=== PATIENT | female | born 1935 | race Caucasian/White ===

== ENCOUNTER → 2017-01-21 16:39 | Outpatient (CLI) | payer MEDICARE, BC ==
[~2017-01-21 16:39] MED LIST: BAYER CHEWABLE81 MG PO; COLACE50 MG/5 ML PO; GLUCOSAMINE & C1 CAP; PREMARIN45 GM VG; SYNTHROID25 MCG PO
[2017-02-03 07:10] VITALS: BMI 20.8
== END | disposition home or self-care (01) ==
LOC: D.MAMMO 10:00
DX: Z12.31 Encounter for screening mammogram for malignant neoplasm of breast (principal)

== ENCOUNTER 2017-02-03 05:34 | Day surgery (SDC) | payer MEDICARE, BC ==
[2017-02-02 12:29] LABS: HEMATOCRIT 34.5 % (36.0-48.0); HEMOGLOBIN 11.4 g/dL (12-16)
[~2017-02-03] VITALS: Ht 154.9 cm; Wt 49.9 kg
[2017-02-03 07:10] VITALS: BP 132/68; Ht 154.9 cm; Wt 49.9 kg
--- NOTE | 2017-02-03 12:07 | NUR ---
1205--IV DC'D, PT UP TO DRESS AT THIS TIME. SAGE FIELDS
--- NOTE | 2017-02-03 12:23 | NUR ---
1225--DISCHARGE INSTRUCTIONS GIVEN, PT VERBALIZES UNDERSTANDING, PT OFF UNIT VIA WC. SAGE FIELDS
--- NOTE | 2017-02-10 08:50 | OP ---
PATIENT NAME: ROBERTO TAMAYO MEDICAL RECORD: [id number] :37 LOCATION:D.OPS ADMISSION DATE: SURGEON: PAUL VILLATORO DPM DATE OF OPERATION: 02/03/2017 PREOPERATIVE DIAGNOSES: 1. Hallux abductovalgus, left foot. 2. Instability, left first met cuneiform joint. 3. Plantar plate rupture, left second metatarsophalangeal joint. 4. Hammertoe deformity, left second digit. POSTOPERATIVE DIAGNOSES: 1. Hallux abductovalgus, left foot. 2. Instability, left first met cuneiform joint. 3. Plantar plate rupture, left second metatarsophalangeal joint. 4. Hammertoe deformity, left second digit. PROCEDURES: 1. Peres bunionectomy, left foot. 2. Fusion left first met cuneiform joint. 3. Rober osteotomy, left second metatarsal. 4. Plantar plate repair, left second MPJ. 5. PIPJ fusion, left 2nd digit. ANESTHESIA: Preoperative popliteal block per the anesthesia department as well as general anesthesia in the operating room as well as 10 cc of infiltration of lidocaine and Marcaine plain around the saphenous nerve at the ankle joint. HEMOSTASIS: Left thigh tourniquet at 350 mmHg. PREOPERATIVE DETAILS: The patient was taken to the OR, placed on the operating table in a supine position. This followed by induction of general anesthesia and infiltration of local anesthetic. The left extremity was then prepped and draped in the usual aseptic technique followed by exsanguination and inflation of tourniquet. PROCEDURE NUMBER ONE: Peres bunionectomy, left foot. A 15-blade was used to create an incision from the dorsal aspect of the medial cuneiform distally to the base of the proximal phalanx of the hallux. The incision was deepened down through subcutaneous tissue to the first MPJ where an inverted L capsulotomy was performed. The medial capsular flap was reflected and the head of the first metatarsal was delivered. A sagittal saw was used to resect the medial eminence. Attention was directed to the first interspace where a lateral release was performed. Good clinical reduction of the lateral contracture was verified and that concludes the Peres bunionectomy. PROCEDURE NUMBER TWO: First met cuneiform joint fusion, left foot. The incision as described in #1 was carried down to the periosteum and periosteal incision was made, being sure to avoid all vital structures. The first met cuneiform joint was delivered. A sagittal saw was used to resect the joint. Temporary fixation was used and a 5-hole plate with the 1 hole crossing the fusion site as a compression screw was placed. The C-arm was used to verify good placement as well as alignment of the first metatarsal. Wound was flushed. The periosteum and joint capsule repaired with 2-0 Vicryl, the subcutaneous tissue with 4-0 Rapide and the skin was closed with 4-0 Rapide in a subcuticular OPERATIVE REPORT [id number] ROBERTO TAMAYO technique followed by Libby. PROCEDURE NUMBER 3: Rober osteotomy, left second metatarsal. A 15-blade was used to create a curvilinear incision from the dorsal aspect of the mid shaft of the second metatarsal to the PIPJ of the second digit. The incision was deepened down through subcutaneous tissue, the extensor longus tendon was visualized and transected in a Z-fashion and retracted in the wound. At this time, a linear capsulotomy was performed over the top of the second MPJ and the head of the second metatarsal was delivered. A McGlamry scoop elevator was used to free the plantar structures. A sagittal saw was then used to create a Rober osteotomy in dorsal distal to plantar proximal through the metatarsal head and proximal and the capital fragment was pushed proximal out of the way. PROCEDURE NUMBER 4: Plantar plate repair. At this time, utilizing a K-wire retraction and distracting the joint. There was noted to be significant deficits centrally in the plantar plate. The plantar plate was freed sharply from the base of the plantar aspect of the proximal phalanx and a scorpion passer was used to pass FiberWire through the plantar plate. Two small drill holes were made in the proximal aspect of the proximal phalanx and the FiberWire was passed up through the small drill holes. At this time, the Rober osteotomy was fixated with 2 popoff screws with the second metatarsal in proper alignment and length and with the toe held in a slightly plantarflexed position at the MPJ, the FiberWire was tied with surgeon's knots up through the drill holes securing and repairing the plantar plate. Excellent alignment of the second MPJ was noted following the repair. PROCEDURE NUMBER 5: PIPJ fusion, left 2nd digit. The extensor longus tendon was freed from the dorsal aspect of the PIPJ. A sagittal saw was used to resect the head of the proximal phalanx and base of the middle phalanx. A small drill hole was made and the bone graft was placed in the deficit with the capital fragment on top of the bone graft compressing it, compressing the fusion site with excellent fixation noted. The wound was flushed. The capsule was repaired with 2-0 Vicryl, the extensor longus tendon was repaired with 4-0 Rapide and subcutaneous tissue was repaired with 4-0 Rapide and the skin was closed with 4-0 Rapide in a subcuticular technique followed by Dermabond, Adaptic, 4 x 4 and Conform were used to dress the wound followed by application of a modified Cabrera compression dressing. Tourniquet was deflated. POSTOPERATIVE DETAILS: The patient tolerated the procedure well and left the OR with vital signs stable and vascular status at preop levels. The patient was transported to recovery per anesthesia in stable condition. TRANSINT:[id number] Voice Confirmation ID: [id number] DOCUMENT ID: [id number] PAUL VILLATORO DPM at 0850 CC: [id number] DICTATION DATE: 02/03/17 1004 SUPERVISOR SIGN SHOP: 02/03/17 1231 [facility] 02/03/17 [address] [place] [address]
== END 2017-02-03 12:25 | disposition home or self-care (01) ==
LOC: D.OPS 05:34 → D.PAN 08:30 → D.OPS 08:30 → D.PAN 09:00 → D.OPS 12:25
PROVIDERS: Anesthesiology
DX: M20.12 Hallux valgus (acquired), left foot (principal); M25.375 Other instability, left foot; S93.525A Sprain of metatarsophalangeal joint of left lesser toe(s), initial encounter; M20.42 Other hammer toe(s) (acquired), left foot

== ENCOUNTER 2019-10-03 10:53 | Outpatient (CLI) | payer MEDICARE ==
[~2019-10-03] VITALS: Ht 154.9 cm; Wt 50.0 kg
--- NOTE | ~2019-10-03 | HEMODYNAMI ---
PATIENT:ROBERTO TAMAYO MEDICAL RECORD: [id number] : 37 LOCATION:[facility] ADMISSION DATE: 10/03/19 Generatedon:10/03/201913:37 Patient name: ROBERTO TAMAYO Patient #: [id number] SSN: [id number] : 1935 Date of study: 10/03/2019 Page: Of Hemodynamic Procedure Report Patient Data Patient Demographics Procedure consent was obtained First Name: ROBERTO Gender: Female Last Name: RONI : 1935 [facility] Initial: PALOMA Age: 84 year(s) Patient #: [id number] Race: SSN: [id number] Additional ID: [id number] Contact details [address]: [address] [place] [address] State: [place] City: [place] Zip code: [address] Admission Admission Data Admission Date: 10/03/2019 Admission Time: 10:53 Arrival Date: 10/03/2019 Arrival Time: 0:00 Admit Source: Other Insurance Payor: Private health insurance, Medicare [facility] #: [id number] Height (in.): 61 BSA: 1.48 (m2) Height (cm.): 154.94 BMI: 21.16 (kg/m2) Weight (lbs.): 112 Weight (kg.): 50.8 Procedure Procedure Types Cath Procedure Diagnostic Procedure JANKI Procedure Description Procedure Date Procedure Date: 10/03/2019 Procedure Start Time: 13:23 Procedure End Time: 13:34 Procedure Staff Name Function Scar Tapia RT Monitor Ange Campbell RN Nurse Nic Stanley MD Performing Physician Franny Nava Boat Dispatcher Cheng Caicedo CRNA Additional personnel Procedure Data Cath Procedure Estimated blood loss: 0 ml Procedure Complications No complications Procedure Medications Medication Administration Route Dosage Oxygen etCO2 Nasal cannula 2 l/min Refer to Anesthesia Notes for Sedation Medications Hurricaine Newport P[address]O. [address] Sprays Hemodynamics Rest BSA: 1.48 (m2) O2 Consumption: Estimated: 201.28 (ml/min) O2 Consumption indexed : Estimated:136 (ml/min/m) Pre Cath Intra NCS Post Cath Vital Signs Time Heart Resp SPO2 etCO2 NIBP (mmHg) Rhythm Pain Sedation Rate (ipm) (%) (mmHg) Status Level (bpm) 13:12:16 81 234 98 0 116/67(83) NSR (Missing) 10(A) 13:16:19 82 19 98 0 134/67(99) NSR (Missing) 10(A) 13:20:32 84 21 98 25.6 138/65(95) NSR (Missing) 10(A) 13:22:55 87 23 100 0 153/94(114) NSR (Missing) 9(A) 13:27:09 84 17 100 24.9 142/76(112) NSR (Missing) 9(A) 13:32:08 90 15 99 27.9 Measuring NSR (Missing) 10(A) 13:33:13 84 20 100 17.3 Out of NSR (Missing) 10(A) range Medications Time Medication Route Dose Verified Delivered Reason Notes Effecti veness by by 13:14:13 Oxygen etCO2 2 Nic Cassidy used for Nasal l/min [facility] Nick Campbell patient svcs mgr cannula MD 13:14:19 Refer to Nic Cassidy Anesthesia [facility] Nick Campbell RN Notes for MD Sedation Medications 13:14:34 Hurricaine P[address] Nic Cassidy for local Newport Sprays St Nick Campbell RN anesthetic MD Procedure Log Time Note 13:08:12 Diagnostic Cath Status : Elective 13:08:37 Scar Tapia RT(R) sent for patient. Start room use. 13:08:44 Time tracking: Regular hours (M-F 7:00 - 5:00) 13:08:48 Plan of Care:Hemodynamics will remain stable., Cardiac rhythm will remain stable., Comfort level will be maintained., Respiratory function will remain adequate., Patient/ family verbilizes understanding of procedure., Procedure tolerated without complication., Recovers from procedure without complications.. 13:09:13 Informed consent obtained and on chart 13:09:50 Admit Source: Other 13:09:52 Arrival Date: 10/03/2019 12:00:00 AM 13:09:59 Insurance Payor : Private health insurance, Medicare 13:10:25 Patient Weight : 112 lbs 13:10:31 Patient Height : 61 inches 13:10:42 Patient received from Pre/Post Procedure Room to CCL 3 Alert and oriented. Tansferred to table in Supine position. 13:10:43 Warm blankets applied, and breana hugger turned on for patient comfort. 13:10:44 Correct patient and procedure confirmed by team. 13:11:00 Vital chart was started 13:11:05 Full Disclosure recording started 13:11:09 H&P Date Dictated: 10/03/2019 Within 30 days and on chart., H&P Addendum completed by physician on day of procedure. (MUST COMPLETE FOR ALL OUTPATIENTS). 13:11:11 Pre-procedure instructions explained to patient. 13:11:12 Pre-op teaching completed and patient verbalized understanding. 13:11:13 Family in patients room. 13:11:14 Patient NPO since Midnight. 13:11:16 Is the patient allergic to Iodine/contrast media? No. 13:11:17 Was the patient premedicated? No 13:14:13 Oxygen 2 l/min etCO2 Nasal cannula was administered by Ange Campbell RN; used for procedure; Verbal order read back and verified. 13:14:19 Refer to Anesthesia Notes for Sedation Medications was administered by Ange Campbell RN; ; Verbal order read back and verified. 13:14:34 Hurricaine Newport 1 Sprays P.O. was administered by Ange Campbell RN; for local anesthetic; Verbal order read back and verified. 13:18:50 Franny Pulidodsoe Diamond Sizer And Sorter present for JANKI. 13:19:11 Is patient on blood thinner?No 13:19:18 Patient diabetic? No. 13:19:20 Previous problem with sedation/anesthesia? No ? 13:19:21 Snore? Yes 13:19:22 Sleep apnea? No 13:19:23 Deviated septum? No 13:19:25 Opens mouth fully? Yes 13:19:26 Sticks out tongue? Yes 13:19:28 Airway obstruction? No ? 13:19:32 Dentures? No ? 13:19:35 Patient pain scale 0/10 ?. 13:19:39 Lab results completed and on chart. 13:19:46 Cheng Caicedo CRNA present and monitoring patient for TIVA. 13:21:05 Physician arrived 13:21:06 --------ALL STOP TIME OUT------ 13:21:07 Final Timeout: patient, procedure, and site verified with staff and physician. All members of the team are in agreement. 13:21:18 Fire Safety Assessment: C--Open oxygen or nitrous oxide is being used. 13:21:22 Physical assessment completed. ASA score P 2 - A patient with mild systemic disease as per Nic Stanley MD. 13:21:27 Sedation plan: TIVA Medication:Propofol 13:23:59 Procedure started. 13:24:02 JANKI started. 13:28:38 JANKI completed. 13:28:42 Procedure ended.(Physican Out) 13:29:49 JANKI Findings: other (see operative note) 13:30:50 Post-procedure physical assessment completed. ASA score P 2 - A patient with mild systemic disease as per Nic Stanley MD. 13:31:55 Post procedure rhythm: unchanged. 13:32:00 Estimated blood loss: 0 ml 13:32:01 Post procedure instruction explained to patient.Patient verbalizes understanding. 13:32:02 Patient needs reinforcement of post procedure teaching. 13:33:04 Procedure and supply charges have been captured, reviewed, submitted and are correct. 13:33:07 Procedure Complication : No complications 13:33:10 Vital chart was stopped 13:33:40 See physician's report for complete and final results. 13:33:40 Operative report dictated upon procedure completion. 13:33:56 Report given to Pre/Post Procedure Room. 13:34:01 Patient transfered to Pre/Post Procedure Room with Stretcher. 13:34:04 Full Disclosure recording stopped 13:34:04 Procedure ended. 13:34:10 End room use (Document Last) Signature Audit [place] Stage Time Signature Unsigned Intra-Procedure 10/03/2019 Scar Tapia 1:35:52 PM RT(R) Intra-Procedure 10/03/2019 Ange Campbell RN 1:36:29 PM Intra-Procedure 10/03/2019 Nic Juares 1:37:11 PM Nick [id number] [place] [address]
[2019-10-03 11:30] VITALS: BP 131/69; Ht 154.9 cm; Wt 50.0 kg
[2019-10-03 11:45] LABS: BASOPHILS 0.9 % (0-2); EOSINOPHILS 2.7 % (0-7); HEMATOCRIT 38.5 % (36.0-48.0); HEMOGLOBIN 13.1 g/dL (12-16); IMMATURE GRANULOCYTES 0.3 % (0-5); LYMPHOCYTES 25.5 % (15-50); MCV 91.2 fL (80.0-100.0); MEAN PLATELET VOLUME 11.3 fL (7.4-10.4); NEUTROPHILS 62.6 % (40-80); PLATELET COUNT 497 10x3/uL (130-400); RBC 4.22 10x6/uL (4.00-5.40); RDW 14.6 % (11.5-14.5)
[2019-10-03 12:29] LABS: CALC OSMOLALITY 268 mosm/kg (275-300); CALCIUM 9.2 mg/dL (8.5-10.1); CARBON DIOXIDE 28.8 mmol/L (21.0-32.0); CHLORIDE - SERUM 99 mmol/L (98-107); CREATININE - SERUM 0.5 mg/dL (0.6-1.3); GLUCOSE 91 mg/dL (74-106); POTASSIUM - SERUM 3.9 mmol/L (3.5-5.1); SODIUM 135 mmol/L (136-145); UREA NITROGEN 9 mg/dL (7-18); eGFR NON AFRICAN AMERICAN > 90 mL/min (90-120)
--- NOTE | 2019-10-03 13:40 | NUR ---
PT RECEIVED FROM MAINTENANCE FOREMAN POST JANKI FOR RECOVERY. PT AWAKE AND ALERT, DENIES PAIN OR DISCOMFORT. PT PLACED ON CARDIAC MONITORS . HR NSR RATE 78, BP 108/64, O2 SAT 96 ON ROOM AIR. IV PATENT INFUSING VIA ORDERS. CALL LIGHT IN REACH.
--- NOTE | 2019-10-03 14:00 | NUR ---
PT RESTING W EYES CLOSED, PT DENIES PAIN OR DISCOMFORT. VSS. CALL LIGHT IN REACH
--- NOTE | 2019-10-03 14:25 | NUR ---
DISCHARGE INSTRUCTIONS REVIEWED W PT AND , BOTH VERBALIZED UNDERSTANDING. PT GIVEN WATER AND TOLERATING W/O DIFFICULITY SWALLOWING. IV REMOVED W CATH INTACT. MONITORS REMOVED AND PT UP TO DRESS FOR DISCHARGE.
--- NOTE | 2019-10-03 14:44 | NUR ---
PT DISCHARGED VIA WC TO WAITING IN PRIVATE VEHICLE. PT HAD ALL BELONGINGS AND DISCHARGE PAPERWORK.
--- NOTE | 2019-10-04 13:38 | TEE ---
PATIENT:ROBERTO TAMAYO [facility] MEDICAL RECORD: [id number] LOCATION:D.[facility] AGE OF PATIENT: 84 ADMISSION DATE: 10/03/19 SEX: F REFERRING PHYSICIAN: INTERPRETING PHYSICIAN: PUSHPA MOLINA MD TRANSESOPHAGEAL ECHOCARDIOGRAM Date: 10/03/19 JANKI CHARGE Y INDICATIONS: MVP/DYSPNEA PREMEDICATIONS: PATIENT'S RESPONSE PROCEDURE DOPPLER MEASUREMENTS: LVIT LA PA RA LVOT RVOT Asc. Ao AV Gradient Peak AV Mean AV Area MV Gradient Peak MV Mean MV Area INTERPRETATION: Doppler: 2-D: COLOR FLOW DOPPLER NORMAL SALINE STUDY: MISCELLANOUS: DIAGNOSIS: PLAN: Home Paraprofessional:3 Dr. Bertrand Registration Specialist: 1 JANICE MONIQUE COMMENTS: DATE OF SERVICE: 10/03/2019 DESCRIPTION OF PROCEDURE: After general sedation via TIVA via anesthesia, transesophageal Omniplane probe was placed to the distal esophagus and proximal stomach without difficulty. FINDINGS: No LVH. LV internal dimension are normal. Wall motion normal. EF is greater than or equal to 55%. Aortic valve is tricuspid with good valve excursion and trivial AI. Left atrium appears normal. Left atrial appendage TRANSESOPHAGEAL ECHOCARDIOGRAM REPORT [id number] JANE TAMAYO was visualized with good contractility. No evidence of thrombus. Mitral valve shows prolapse. Multiple views were taken. 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 Right-sided chambers grossly normal. No significant TR. TRANSINT:[id number] Voice Confirmation ID: [id number] DOCUMENT ID: [id number] at 1338 CC: [id number] DICTATION DATE: 10/03/[address] SUPERVISOR: 10/04/19 0808 DEP CLI 10/03/19 [id number] [place] [address]
== END 2019-10-03 14:40 | disposition home or self-care (01) ==
LOC: D.CATH 10:53
PROVIDERS: ATTEND Internal Medicine Interventional Cardiology
DX: I34.1 Nonrheumatic mitral (valve) prolapse (principal); R06.02 Shortness of breath

== ENCOUNTER → 2019-10-12 09:53 | Outpatient (CLI) | payer MEDICARE ==
[2019-10-03 11:30] VITALS: BMI 20.8
== END | disposition home or self-care (01) ==
LOC: D.CT 09:53
PROVIDERS: ATTEND Family Medicine
DX: R91.1 Solitary pulmonary nodule (principal); R05 Cough

== ENCOUNTER → 2020-02-01 10:43 | Outpatient (CLI) | payer MEDICARE ==
[2019-10-03 11:30] VITALS: BMI 20.8
== END | disposition home or self-care (01) ==
LOC: D.RAD 10:43
PROVIDERS: ATTEND Allergy & Immunology
DX: J32.9 Chronic sinusitis, unspecified (principal)

== ENCOUNTER → 2020-07-08 08:14 | Outpatient (CLI) | payer MEDICARE ==
[2019-10-03 11:30] VITALS: BMI 20.8
[2020-07-08 11:26] LABS: BASOPHILS 1.9 % (0-2); EOSINOPHILS 2.5 % (0-7); HEMATOCRIT 36.8 % (36.0-48.0); HEMOGLOBIN 12.2 g/dL (12-16); IMMATURE GRANULOCYTES 0.2 % (0-5); LYMPHOCYTES 26.8 % (15-50); MCH 30.3 pg (26.0-34.0); MCHC 33.2 g/dL (31.0-37.0); MCV 91.5 fL (80.0-100.0); MEAN PLATELET VOLUME 9.4 fL (7.4-10.4); MONOCYTES 10.5 % (2-11); NEUTROPHILS 58.1 % (40-80); RBC 4.02 10x6/uL (4.00-5.40); RDW 13.5 % (11.5-14.5); WBC 4.8 10x3/uL (4.8-10.8)
[2020-07-08 11:39] LABS: PLATELET COUNT 320 10x3/uL (130-400)
[2020-07-09 08:12] LABS: IMMUNOGLOBULIN A 186 mg/dL (64-422); IMMUNOGLOBULIN G 1651 mg/dL (586-1602); IMMUNOGLOBULIN M 154 mg/dL (26-217)
[2020-07-10 11:11] LABS: IMMUNOGLOBULIN E 664 IU/mL (6-495)
== END | disposition home or self-care (01) ==
LOC: D.CT 08:14 → D.RT 09:30
PROVIDERS: ATTEND Internal Medicine Pulmonary Disease
DX: J32.9 Chronic sinusitis, unspecified (principal); R06.09 Other forms of dyspnea; Z11.59 Encounter for screening for other viral diseases